=== PATIENT | female | born 1965 | race Caucasian/White ===

== ENCOUNTER → 2024-01-15 13:40 | Outpatient (REF) | payer BC, SELFPAY | LOC: HWRAD 13:40 | PROVIDERS: ATTENDING PHYSICIAN Family Medicine | DX: M85.9 Disorder of bone density and structure, unspecified (principal) | CPT/HCPCS: 77080 ==

== ENCOUNTER → 2024-02-09 10:41 | Outpatient (REF) | payer BC, SELFPAY | LOC: HWWDC 10:41 | PROVIDERS: ATTENDING PHYSICIAN Internal Medicine Hematology & Oncology; FAMILY PHYSICIAN Family Medicine; REFERRING PHYSICIAN Obstetrics & Gynecology | DX: Z12.31 Encounter for screening mammogram for malignant neoplasm of breast (principal) | CPT/HCPCS: 77063; 77067 ==

== ENCOUNTER → 2025-02-09 11:34 | Outpatient (REF) | payer BC, SELFPAY | LOC: HWWDC 11:34 | PROVIDERS: ATTENDING PHYSICIAN Obstetrics & Gynecology; FAMILY PHYSICIAN Family Medicine | DX: Z12.31 Encounter for screening mammogram for malignant neoplasm of breast (principal) | CPT/HCPCS: 77063; 77067 ==